=== PATIENT | male | born 1950 | race Caucasian/White ===

== ENCOUNTER → 2016-06-26 | Outpatient (CLI) | payer OTHER, MEDICARE ==
[~2016-06-26] MED LIST: AMLO5TAB2 PO; ATOR40TA78 PO; CARV-39 PO; CARV12.52 PO; CHLO25TA PO; CLON0.2T PO; ISOS30TA8 PO; LISI40TA PO; POTA CHLORIDE PO
== END | disposition home or self-care (01) ==
LOC: CVU 14:09
PROVIDERS: ATTEND Internal Medicine Cardiovascular Disease
DX: I65.23 Occlusion and stenosis of bilateral carotid arteries (principal); Z95.1 Presence of aortocoronary bypass graft; Z98.890 Other specified postprocedural states; Z86.73 Personal history of transient ischemic attack (TIA), and cerebral infarction without residual deficits; I10 Essential (primary) hypertension; E78.5 Hyperlipidemia, unspecified; I25.10 Atherosclerotic heart disease of native coronary artery without angina pectoris; I51.7 Cardiomegaly
CPT/HCPCS: 93880; C8929